=== PATIENT | female | born 1950 | race Caucasian/White ===

== ENCOUNTER 2017-05-19 15:44 | Emergency (ER) | payer BC, MEDICARE ==
[~2017-05-19] VITALS: Ht 161.3 cm; Wt 61.2 kg
--- NOTE | ~2017-05-19 | CR169 ---
[facility] A Service [facility] RADIOLOGY TEXT RESULTS PATIENT: XIN STERLING LOCATION: [place] : 52 UNIT #: [id number] AGE: [address]: Marcelina Marin MD SEX: F ORDER DR: [id number] [facility]. [place], [place] [address] [id number] E MR#: [id number] Acc #: [id number] NAME: XIN STERLING : 1950 SEX: F STUDY DATE/TIME: 05/19/2017 16:06 UNIT: [id number] ROOM: STUDY DESCRIPTION: CR Knee 2 Views Lt Attending Physician: Marcelina Marin M.D. Ordering Physician: Jose Browne M.D. Primary Care Physician: Storm Ruff M.D. MEDICAL IMAGING REPORT This report is preliminary unless electronic signature is present EXAM Left knee 2 views 05/19/2017. INDICATIONS Possible strain or twisting injury of the left knee. Pain and swelling that began today. TECHNIQUE 2 views. COMPARISON No comparisons. FINDINGS Tricompartmental degenerative changes are present. There is spurring of the tibial spines. The bones are osteoporotic. No acute fracture. Probable small joint effusion. IMPRESSION 1. Probable small joint effusion which is nonspecific. Degenerative changes, but no acute fracture. Dictated by... Ras Graham M.D. THIS IS AN ELECTRONICALLY VERIFIED REPORT Ras Graham M.D. at 05/20/2017 2:23 PM ALLISONY/brittni TD: 05/20/2017 11:02 JOB #: [id number] MEDICAL IMAGING REPORT [facility] A Service [facility] RADIOLOGY TEXT RESULTS PATIENT: XIN STERLING LOCATION: [place] : 52 UNIT #: [id number] AGE: [address]: Marcelina Mrain MD SEX: F ORDER DR: Page 1 of 1 COPY
[~2017-05-19 15:44] MED LIST: FLEXERIL PO; HYDROCODONE-APA1 T33 PO; LAMISIL PO; PREMARIN PO
== END 2017-05-19 16:59 | disposition home or self-care (01) ==
LOC: CFTX 15:44 → CED 15:44 → CFTX 16:56
DX: S83.92XA Sprain of unspecified site of left knee, initial encounter (principal); X50.1XXA Overexertion from prolonged static or awkward postures, initial encounter; Y92.009 Unspecified place in unspecified non-institutional (private) residence as the place of occurrence of the external cause
CPT/HCPCS: 29530; 73560; 99283